=== PATIENT | female | born 1930 | race Caucasian/White ===

== ENCOUNTER 2016-11-05 08:53 | Emergency (ER) | payer OTHER ==
[~2016-11-05] VITALS: Ht 147.3 cm; Wt 62.9 kg
[~2016-11-05 08:53] MED LIST: ADVIL200 MG PO; ALBUTEROL SULF8.5 GM IH; AMLODIPINE BESYL5 MG PO; ASPIRIN EC325 MG PO; ATORVASTATIN CA10 MG PO; ATORVASTATIN CA20 MG PO; CHILD ASPIRIN81 M1 PO; CIPRO250 MG PO; CLEAR EYES REDN30 M1 BOTH EYES; CRESTOR10 MG PO; LASIX40 MG PO; LIPITOR20 MG PO; METOPROLOL SUC100 MG PO; MIRALAX17 GM PO; NORCO 5/3251 TABLET PO; PEPCID20 MG PO; PRAVACHOL40 MG PO; SALINE NASAL SP45 ML BOTH NARES; SPIRIVA1 INHALATI IH; TOPROL XL25 MG PO; TYLENOL ARTHRI650 MG PO; VITAMIN D1000 INTUN PO; ZANTAC150 MG PO; ZESTORETIC 10-1 EAC1 PO; ZESTORETIC,P1 TABLE1 PO
[2016-11-05] MEDS ORDERED: FLEXERIL10 MG PO (10:07)
[2016-11-05] MEDS ORDERED: MOBIC7.5 MG PO (10:07)
[2016-11-05 10:43] VITALS: BP 124/62
== END 2016-11-05 10:46 | disposition home or self-care (01) ==
LOC: EME 08:53
DX: S20.229A Contusion of unspecified back wall of thorax, initial encounter (principal); S70.02XA Contusion of left hip, initial encounter; W10.8XXA Fall (on) (from) other stairs and steps, initial encounter; M81.0 Age-related osteoporosis without current pathological fracture; J44.9 Chronic obstructive pulmonary disease, unspecified; E78.5 Hyperlipidemia, unspecified; I10 Essential (primary) hypertension; K21.9 Gastro-esophageal reflux disease without esophagitis; Z87.891 Personal history of nicotine dependence
CPT/HCPCS: 71020; 72170; 99281; 99284

== ENCOUNTER 2017-12-03 16:09 | Emergency (ER) | payer OTHER ==
[~2017-12-03] VITALS: Ht 144.8 cm; Wt 61.3 kg
[~2017-12-03 16:09] MED LIST changes: +FLEXERIL10 MG PO; +MOBIC7.5 MG PO
[2017-12-03 17:15] LABS: BASOPHIL (%) 0.6 % (0-1); BASOPHIL COUNT 0.1 K/uL (0-0.1); EOSINOPHIL (%) 3.3 % (0-5); EOSINOPHIL COUNT 0.3 K/uL (0-0.3); HEMATOCRIT 37.3 % (36.0-46.0); HEMOGLOBIN 12.6 G/DL (11.9-15.5); IMMATURE GRANULOCYTE (%) 0.4 % (0.0-0.7); LYMPHOCYTE (%) 30.2 % (15-42); LYMPHOCYTE COUNT 2.4 K/uL (1.0-2.8); MCH 31.3 PG (29.0-34.0); MCHC 33.8 G/DL (30.0-36.0); MCV 92.8 FL (83-99); MONOCYTE (%) 10.4 % (3-12); MONOCYTE COUNT 0.8 K/uL (0-0.8); NEUTROPHIL (%) 55.1 % (45-76); NEUTROPHIL COUNT 4.3 K/uL (1.8-6.4); PLATELET COUNT 245 K/uL (156-360); RBC DIS.WIDTH-CV 13.1 % (11.8-14.6); RBC DIS.WIDTH-SD 44.5 % (39-53); RED BLOOD COUNT 4.02 M/uL (3.80-5.20); WHITE BLOOD COUNT 7.8 K/uL (4.1-10.2)
[2017-12-03 17:25] LABS: CHLORIDE 103 mEq/L (99-109); POTASSIUM 4.4 mEq/L (3.7-5.4); SODIUM 140 mEq/L (136-147)
[2017-12-03 17:27] LABS: GLUCOSE 93 mg/dL (70-99)
[2017-12-03 17:30] LABS: CREATININE 1.1 mg/dL (0.6-1.3); GFR ESTIMATE (CALCULATED) 50 mL/min/
[2017-12-03 17:31] LABS: UREA NITROGEN (BUN) 21 mg/dL (9-23)
[2017-12-03 17:35] LABS: TROP-I INTERPRETATION NEGATIVE; TROPONIN-I < 0.01 ng/mL (0.0-0.30)
[2017-12-03 18:22] LABS: APPEARANCE CLEAR ((CLEAR)); BILIRUBIN NEGATIVE; BLOOD NEGATIVE; COLOR YELLOW ((YELLOW)); GLUCOSE (STRIP) NEGATIVE; KETONES NEGATIVE; LEUKOCYTES TRACE; NITRITE NEGATIVE; PROTEIN (STRIP) NEGATIVE; SPECIFIC GRAVITY 1.008 (1.000-1.030)
[2017-12-03 18:51] LABS: BACTERIA NONE SEEN /HPF; EPITHELIAL CELLS RARE /HPF; MUCUS TRACE /LPF; RED BLOOD CELLS 0-5 /HPF (0-5); UCUL ADDED? YES
[2017-12-03 19:46] VITALS: BP 173/84
== END 2017-12-03 19:53 | disposition home or self-care (01) ==
LOC: EME 16:09
PROVIDERS: Emergency Medicine
DX: R42 Dizziness and giddiness (principal); F32.9 Major depressive disorder, single episode, unspecified; J44.9 Chronic obstructive pulmonary disease, unspecified; E78.5 Hyperlipidemia, unspecified; I10 Essential (primary) hypertension; K21.9 Gastro-esophageal reflux disease without esophagitis; M81.0 Age-related osteoporosis without current pathological fracture; Z87.891 Personal history of nicotine dependence; Z85.828 Personal history of other malignant neoplasm of skin; Z79.82 Long term (current) use of aspirin
CPT/HCPCS: 70450; 71046; 80048; 81003; 84484; 85025; 87077; 87086; 87186; 93005; 99281; 99284